=== PATIENT | male | born 1950 | race African-American/Black ===

== ENCOUNTER 2022-05-29 11:42 | Observation (INO) ==
[2022-05-29] MEDS ORDERED: SODIUM CHLORIDE 0.9% 1,000 ML IV STA (12:18)
[2022-05-29] MEDS ORDERED: DEXTROSE 10% 250 ML BAG IV PRN (13:24)
[2022-05-29] MEDS ORDERED: GLUCAGON 1 MG VIAL IM PRN (13:24)
[2022-05-29] MEDS ORDERED: ONDANSETRON 4 MG/2 ML VIAL IV PRN (13:26)
[2022-05-29] MEDS ORDERED: ACETAMINOPHEN 325 MG TABLET PO PRN (13:26)
[2022-05-29] MEDS ORDERED: POTASSIUM CHLORIDE 20 MEQ TABLET PO STA (13:26)
[2022-05-29] MEDS: SODIUM CHLORIDE 0.9% 1,000 ML IV SCH (14:16)
[2022-05-29] MEDS: PANTOPRAZOLE 40 MG TABLET PO SCH (14:16)
[2022-05-29] MEDS ORDERED: PNEUMOCOCCAL VACCINE (13 VALENT) 0.5 ML SYRINGE IM ONE (16:20)
[2022-05-29 16:46] LABS: Albumin 2.6 G/DL (3.4-5.0); Bilirubin,Total 0.4 MG/DL (0.20-1.00); Calcium 9.7 MG/DL (8.5-10.1); Osmolality,Calculated 287.3 MOS/KG (273-304); Potassium 3.3 MMOL/L (3.5-5.1); Total Protein 7.4 G/DL (6.4-8.2)
[2022-05-29] MEDS: ENOXAPARIN 40 MG/0.4 ML SYRINGE SUBCUT SCH (16:47)
[2022-05-30] MEDS: SODIUM CHLORIDE 0.9% 1,000 ML IV SCH (00:58)
[2022-05-30 05:01] LABS: Basophils # 0.1 10*3/uL (0.0-0.2); Basophils % 0.7 % (0.0-0.8); Eosinophils % 0.1 % (0.00-10.9); Hematocrit 26.6 VOL% (42.0-52.0); Hemoglobin 8.8 GM/DL (14.0-18.0); Immature Granulocytes % 5.3 %; Immature Granulocytes Absolute 0.46 #; Lymphocytes # 2.1 10*3/uL (1.4-4.0); Lymphocytes % 23.5 % (21.2-54.2); Mean Corpuscular HGB Conc 33.1 GM/DL (32-36); Mean Corpuscular Volume 91.1 FL (87-102); Mean Platelet Volume 10.8 FL (9.6-12.0); Monocytes # 0.9 10*3/uL (0.11-0.8); Monocytes % 10.7 % (1.7-12.7); Neutrophils % 59.7 % (38.7-73.9); Platelet Count 279 T/CUMM (130-400); Red Blood Count 2.92 MC/CUMM (3.8-5.5); Red Cell Distribution Width 14.6 % (9.3-17.3); White Blood Count 8.8 T/CUMM (4-12)
[2022-05-30 05:22] LABS: Band Neutrophils 1 % (0-10); Lymphocytes 25 % (20-55); Metamyelocytes 1 %; Myelocytes 1 %; Total Cells Counted 100
[2022-05-30 05:23] LABS: Microcytosis Slight; Ovalocytes Slight
[2022-05-30 05:25] LABS: Albumin 2.2 G/DL (3.4-5.0); Bilirubin,Total 0.4 MG/DL (0.20-1.00); Calcium 8.7 MG/DL (8.5-10.1); Osmolality,Calculated 284.3 MOS/KG (273-304); Potassium 2.6 MMOL/L (3.5-5.1); Total Protein 6.3 G/DL (6.4-8.2)
[2022-05-30] MEDS ORDERED: POTASSIUM CHLORIDE 20 MEQ TABLET PO ONE ×3 (07:37→12:00)
[2022-05-30] MEDS ORDERED: MAGNESIUM SULF RIDER 4 GM/100 ML PREMIX IV ONE (07:41)
[2022-05-30] MEDS: SIMVASTATIN 10 MG TABLET PO SCH (09:10)
[2022-05-30] MEDS: PANTOPRAZOLE 40 MG TABLET PO SCH (09:10)
[2022-05-30] MEDS ORDERED: LOPERAMIDE 2 MG CAPSULE PO PRN (10:41)
[2022-05-30] MEDS: POTASSIUM CHLORIDE INJ 30 MEQ in SODIUM CHLORIDE 0.9% 1,000 ML IV SCH ×2 (11:34→20:36)
[2022-05-30] MEDS: ENOXAPARIN 40 MG/0.4 ML SYRINGE SUBCUT SCH (15:40)
[2022-05-31 05:05] LABS: Basophils # 0.1 10*3/uL (0.0-0.2); Basophils % 0.6 % (0.0-0.8); Eosinophils % 0.1 % (0.00-10.9); Hematocrit 27.9 VOL% (42.0-52.0); Hemoglobin 9.3 GM/DL (14.0-18.0); Immature Granulocytes % 4.2 %; Immature Granulocytes Absolute 0.34 #; Lymphocytes # 1.7 10*3/uL (1.4-4.0); Lymphocytes % 20.5 % (21.2-54.2); Mean Corpuscular HGB Conc 33.3 GM/DL (32-36); Mean Corpuscular Volume 91.8 FL (87-102); Mean Platelet Volume 10.4 FL (9.6-12.0); Monocytes # 0.8 10*3/uL (0.11-0.8); Monocytes % 9.3 % (1.7-12.7); Neutrophils % 65.3 % (38.7-73.9); Platelet Count 315 T/CUMM (130-400); Red Blood Count 3.04 MC/CUMM (3.8-5.5); Red Cell Distribution Width 14.8 % (9.3-17.3); White Blood Count 8.1 T/CUMM (4-12)
[2022-05-31] MEDS: POTASSIUM CHLORIDE INJ 30 MEQ in SODIUM CHLORIDE 0.9% 1,000 ML IV SCH (05:10)
[2022-05-31 05:38] LABS: Calcium 8.9 MG/DL (8.5-10.1); Potassium 3.7 MMOL/L (3.5-5.1)
[2022-05-31 08:18] VITALS: BP 140/82
[2022-05-31] MEDS: SIMVASTATIN 10 MG TABLET PO SCH (09:31)
[2022-05-31] MEDS: PANTOPRAZOLE 40 MG TABLET PO SCH (09:31)
== END 2022-05-31 11:02 | disposition home or self-care (01) ==
LOC: N.EDINP 11:42 → N.ED 11:42 → SUATTDRO 13:24 → N.EDINP 15:48 → N.TELEN 15:53
PROVIDERS: ADMIT Internal Medicine Geriatric Medicine; ATTEND Family Medicine

== ENCOUNTER 2022-06-21 08:36 | Inpatient (IN) ==
[2022-06-21] MEDS ORDERED: SODIUM CHLORIDE 0.9% 1,000 ML IV STA ×2 (08:53→10:17)
[2022-06-21 09:53] LABS: Albumin 2.1 G/DL (3.4-5.0); Bilirubin,Total 0.7 MG/DL (0.20-1.00); Calcium 9.8 MG/DL (8.5-10.1); Osmolality,Calculated 281.2 MOS/KG (273-304); Potassium 3.2 MMOL/L (3.5-5.1); Total Protein 8.8 G/DL (6.4-8.2)
[2022-06-21 10:02] LABS: Basophils % 0.1 % (0.0-0.8); Eosinophils % 0.2 % (0.00-10.9); Hematocrit 24.3 VOL% (42.0-52.0); Immature Granulocytes % 1.1 %; Immature Granulocytes Absolute 0.11 #; Lymphocytes # 0.8 10*3/uL (1.4-4.0); Lymphocytes % 8.3 % (21.2-54.2); Mean Corpuscular HGB Conc 32.9 GM/DL (32-36); Mean Platelet Volume 10.7 FL (9.6-12.0); Monocytes # 0.7 10*3/uL (0.11-0.8); Monocytes % 7.1 % (1.7-12.7); Neutrophils % 83.2 % (38.7-73.9); Platelet Count 231 T/CUMM (130-400); Red Blood Count 2.73 MC/CUMM (3.8-5.5); Red Cell Distribution Width 15.4 % (9.3-17.3); White Blood Count 10.1 T/CUMM (4-12)
[2022-06-21] MEDS ORDERED: POTASSIUM CHLORIDE 20 MEQ TABLET PO STA (10:12)
[2022-06-21] MEDS ORDERED: SODIUM CHLORIDE 0.9% 2,200 ML IV ONE (10:21)
[2022-06-21 10:27] LABS: Bilirubin,Total 0.7 MG/DL (0.20-1.00); Osmolality,Calculated 287.8 MOS/KG (273-304); Potassium 3.2 MMOL/L (3.5-5.1); Total Protein 7.8 G/DL (6.4-8.2)
[2022-06-21 11:46] LABS: Mucus,Urine Occasional /LPF (Occasional); RBC,Urine 1 /HPF (0-4); Squamous Epithelial Cell,Urine Occasional /HPF (0-10); Urine Appearance Clear (Clear); Urine Color Yellow (Yellow); Urine pH 5.5 (4.5-8.0)
[2022-06-21 11:47] LABS: Bilirubin,Urine Negative (Negative); Blood, Urine Negative (Negative); Glucose,Urine (UA) Negative (Negative); Ketones,Urine Negative (Negative); Nitrite,Urine Negative (Negative); Protein,Urine Trace mg/dL (Negative); Urine Specific Gravity 1.015 (1.001-1.035)
[2022-06-21] MEDS: PIPERACILLIN/TAZOBACTAM 3,375 MG in SODIUM CHLORIDE 0.9% 100 ML IV SCH ×2 (11:48→17:46)
[2022-06-21] MEDS ORDERED: SODIUM CHLORIDE 0.9% 50 ML IV STA (11:50)
[2022-06-21] MEDS ORDERED: SODIUM CHLORIDE 0.9% 200 ML IV STA (11:51)
[2022-06-21] MEDS ORDERED: POTASSIUM CHLORIDE 20 MEQ TABLET PO ONE (12:42)
[2022-06-21] MEDS ORDERED: ONDANSETRON 4 MG/2 ML VIAL IV PRN (12:44)
[2022-06-21] MEDS ORDERED: DEXTROSE 10% 250 ML BAG IV PRN (12:44)
[2022-06-21] MEDS ORDERED: ACETAMINOPHEN 325 MG TABLET PO PRN (12:44)
[2022-06-21] MEDS ORDERED: GLUCAGON 1 MG VIAL IM PRN (12:44)
[2022-06-21] MEDS: SODIUM CHLORIDE 0.9% 1,000 ML IV SCH ×2 (13:10→23:03)
[2022-06-21 13:21] LABS: Ferritin 502.4 ng/mL (26-388); Folate 19.34 NG/ML (5.38-24.0)
[2022-06-21] MEDS ORDERED: MAGNESIUM SULF RIDER 2 GM/50 ML PREMIX IV ONE (15:11)
[2022-06-22] MEDS: PIPERACILLIN/TAZOBACTAM 3,375 MG in SODIUM CHLORIDE 0.9% 100 ML IV SCH ×3 (03:01→17:39)
[2022-06-22 04:35] LABS: Basophils % 0.3 % (0.0-0.8); Eosinophils # 0.1 10*3/uL (0.0-0.87); Eosinophils % 1.3 % (0.00-10.9); Hematocrit 23.4 VOL% (42.0-52.0); Hemoglobin 7.8 GM/DL (14.0-18.0); Immature Granulocytes % 1.5 %; Immature Granulocytes Absolute 0.16 #; Lymphocytes # 1.5 10*3/uL (1.4-4.0); Mean Corpuscular HGB Conc 33.3 GM/DL (32-36); Mean Platelet Volume 10.9 FL (9.6-12.0); Monocytes # 1.4 10*3/uL (0.11-0.8); Monocytes % 12.8 % (1.7-12.7); NRBC # 0.02 10*3/uL; Neutrophils % 70.1 % (38.7-73.9); Platelet Count 165 T/CUMM (130-400); Red Blood Count 2.63 MC/CUMM (3.8-5.5); Red Cell Distribution Width 15.6 % (9.3-17.3); White Blood Count 10.9 T/CUMM (4-12)
[2022-06-22 06:37] LABS: Calcium 8.9 MG/DL (8.5-10.1); Osmolality,Calculated 283.5 MOS/KG (273-304); Potassium 3.7 MMOL/L (3.5-5.1)
[2022-06-22] MEDS ORDERED: LACTATED RINGERS 1,000 ML IV SCH (07:30)
[2022-06-22] MEDS ORDERED: SODIUM CHLORIDE 0.9% 1,000 ML IV PRN (08:37)
[2022-06-22] MEDS: PANTOPRAZOLE 40 MG TABLET PO SCH (10:17)
[2022-06-22] MEDS: FERRIC GLUCONATE COMPLEX 125 MG in SODIUM CHLORIDE 0.9% 100 ML IV SCH (10:17)
[2022-06-22] MEDS: SODIUM CHLORIDE 0.9% 1,000 ML IV SCH (17:49)
[2022-06-23] MEDS: PIPERACILLIN/TAZOBACTAM 3,375 MG in SODIUM CHLORIDE 0.9% 100 ML IV SCH ×3 (02:10→18:43)
[2022-06-23 04:51] LABS: Basophils % 0.2 % (0.0-0.8); Eosinophils # 0.2 10*3/uL (0.0-0.87); Hematocrit 30.1 VOL% (42.0-52.0); Hemoglobin 10.5 GM/DL (14.0-18.0); Immature Granulocytes % 1.2 %; Lymphocytes # 1.1 10*3/uL (1.4-4.0); Lymphocytes % 14.2 % (21.2-54.2); Mean Corpuscular HGB Conc 34.9 GM/DL (32-36); Mean Corpuscular Volume 88.3 FL (87-102); Mean Platelet Volume 10.9 FL (9.6-12.0); Monocytes # 0.4 10*3/uL (0.11-0.8); Monocytes % 5.4 % (1.7-12.7); Platelet Count 246 T/CUMM (130-400); Red Blood Count 3.41 MC/CUMM (3.8-5.5); Red Cell Distribution Width 15.9 % (9.3-17.3)
[2022-06-23 05:15] LABS: Osmolality,Calculated 274.8 MOS/KG (273-304); Potassium 3.6 MMOL/L (3.5-5.1)
[2022-06-23] MEDS ORDERED: MAGNESIUM SULF RIDER 2 GM/50 ML PREMIX IV ONE (08:02)
[2022-06-23] MEDS ORDERED: LOPERAMIDE 2 MG CAPSULE PO PRN (08:05)
[2022-06-23] MEDS: FERRIC GLUCONATE COMPLEX 125 MG in SODIUM CHLORIDE 0.9% 100 ML IV SCH (10:05)
[2022-06-23] MEDS: PANTOPRAZOLE 40 MG TABLET PO SCH (10:05)
[2022-06-23] MEDS: allopurinoL 100 MG TABLET PO SCH (10:08)
[2022-06-23] MEDS ORDERED: SIMVASTATIN 10 MG TABLET PO SCH (21:00)
[2022-06-24] MEDS: PIPERACILLIN/TAZOBACTAM 3,375 MG in SODIUM CHLORIDE 0.9% 100 ML IV SCH ×2 (02:19→10:20)
[2022-06-24 05:35] LABS: Basophils % 0.3 % (0.0-0.8); Eosinophils # 0.1 10*3/uL (0.0-0.87); Hematocrit 27.2 VOL% (42.0-52.0); Immature Granulocytes % 0.9 %; Immature Granulocytes Absolute 0.06 #; Lymphocytes # 1.2 10*3/uL (1.4-4.0); Lymphocytes % 18.5 % (21.2-54.2); Mean Corpuscular HGB Conc 33.1 GM/DL (32-36); Mean Corpuscular Volume 87.2 FL (87-102); Mean Platelet Volume 10.5 FL (9.6-12.0); Monocytes # 0.4 10*3/uL (0.11-0.8); Monocytes % 6.6 % (1.7-12.7); Neutrophils % 71.7 % (38.7-73.9); Platelet Count 223 T/CUMM (130-400); Red Blood Count 3.12 MC/CUMM (3.8-5.5); Red Cell Distribution Width 15.6 % (9.3-17.3); White Blood Count 6.5 T/CUMM (4-12)
[2022-06-24 05:52] LABS: Calcium 8.8 MG/DL (8.5-10.1); Potassium 3.3 MMOL/L (3.5-5.1)
[2022-06-24] MEDS ORDERED: POTASSIUM CHLORIDE 20 MEQ TABLET PO ONE (07:42)
[2022-06-24 08:02] LABS: Platelet Estimate Normal
[2022-06-24] MEDS ORDERED: MAGNESIUM SULF RIDER 2 GM/50 ML PREMIX IV ONE (08:21)
[2022-06-24] MEDS: allopurinoL 100 MG TABLET PO SCH (08:38)
[2022-06-24] MEDS: PANTOPRAZOLE 40 MG TABLET PO SCH (08:38)
[2022-06-24] MEDS ORDERED: LISINOPRIL/HCTZ 20-12.5 MG TABLET PO SCH (09:00)
[2022-06-24] MEDS: FERRIC GLUCONATE COMPLEX 125 MG in SODIUM CHLORIDE 0.9% 100 ML IV SCH (09:09)
[2022-06-24 16:19] VITALS: BP 123/70
== END 2022-06-24 16:30 | disposition home or self-care (01) | DRG 683 ==
LOC: EDBD → EDUNIT# → N.EDINP 08:36 → N.ED 08:36 → N.EDINP 15:24 → N.TELES 15:55 → SUATTDRO 06-22 08:33
PROVIDERS: ADMIT Internal Medicine; ATTEND Emergency Medicine

== ENCOUNTER 2022-10-18 05:13 | Inpatient (IN) ==
[2022-10-18] MEDS ORDERED: VANCOMYCIN INJ 1,000 MG in SODIUM CHLORIDE 0.9% 250 ML IV ONE (06:00)
[2022-10-18] MEDS: LACTATED RINGERS 1,000 ML IV SCH ×2 (06:13→08:58)
[2022-10-18 06:26] LABS: INR 0.9; PT Patient Result 10.2 SECS (10.1-12.1); Partial Thromboplastin Time 26.2 SECS (23.7-32.9)
[2022-10-18] MEDS ORDERED: MIDAZOLAM 2 MG/2 ML VIAL ONE (06:37)
[2022-10-18] MEDS ORDERED: fentaNYL 100 MCG/2 ML VIAL ONE ×2 (06:37→08:01)
[2022-10-18] MEDS ORDERED: buprenorphine HCL 0.3 MG/ML VIAL ONE (06:38)
[2022-10-18] MEDS ORDERED: ACETAMINOPHEN 500 MG TABLET PO ONE (06:42)
[2022-10-18] MEDS ORDERED: GABAPENTIN 400 MG CAPSULE PO ONE (06:42)
[2022-10-18] MEDS ORDERED: DEXAMETHASONE 4 MG/1 ML VIAL ONE ×3 (06:44→08:28)
[2022-10-18] MEDS ORDERED: BUPIVACAINE SPINAL 0.75% 2 ML AMP SPINAL ONE (06:44)
[2022-10-18] MEDS ORDERED: LIDOCAINE 1% 5 ML VIAL ONE (06:45)
[2022-10-18] MEDS ORDERED: ROPIVACAINE 0.5% 30 ML VIAL ONE (06:45)
[2022-10-18] MEDS ORDERED: GABAPENTIN 400 MG CAPSULE ONE (06:48)
[2022-10-18] MEDS ORDERED: ACETAMINOPHEN 500 MG TABLET ONE (06:48)
[2022-10-18] MEDS ORDERED: ONDANSETRON 4 MG/2 ML VIAL IV PRN ×2 (07:22→09:00)
[2022-10-18] MEDS ORDERED: PROMETHAZINE 25 MG/1 ML VIAL IM PRN (07:22)
[2022-10-18] MEDS ORDERED: BISACODYL 10 MG SUPP RECTAL PRN (07:22)
[2022-10-18] MEDS ORDERED: MAGNESIUM HYDROXIDE SUSP 30 ML UDCUP PO PRN (07:22)
[2022-10-18] MEDS ORDERED: diphenhydrAMINE CAP 25 MG CAPSULE PO PRN (07:22)
[2022-10-18] MEDS ORDERED: LACTULOSE 20 GM/30 ML UDCUP PO PRN (07:22)
[2022-10-18] MEDS ORDERED: TEMAZEPAM 7.5 MG CAPSULE PO PRN (07:22)
[2022-10-18] MEDS ORDERED: TRANEXAMIC ACID 1,000 MG/10 ML VIAL ONE (07:37)
[2022-10-18] MEDS ORDERED: ROCURONIUM 50 MG/5 ML VIAL IV ONE (07:37)
[2022-10-18] MEDS ORDERED: SEVOFLURANE 1 UNIT/15 MINUTE INH ONE ×6 (07:37→08:28)
[2022-10-18] MEDS ORDERED: LIDOCAINE 2% 5 ML VIAL ONE (07:37)
[2022-10-18] MEDS ORDERED: propofoL 200 MG/20 ML VIAL IV ONE ×3 (07:37→08:19)
[2022-10-18] MEDS ORDERED: HYDROmorphone 1 MG/1 ML SYRINGE ONE (07:38)
[2022-10-18] MEDS ORDERED: MORPHINE 2 MG/1 ML SYRINGE IV PRN (07:40)
[2022-10-18] MEDS ORDERED: LABETALOL 20 MG/4 ML SYRINGE IV ONE (07:49)
[2022-10-18] MEDS ORDERED: hydrALAZINE 20 MG/1 ML VIAL ONE (08:01)
[2022-10-18] MEDS ORDERED: ONDANSETRON 4 MG/2 ML VIAL ONE (08:10)
[2022-10-18] MEDS ORDERED: PHENYLEPHRINE 1 MG/10 ML SYRINGE IV ONE (08:18)
[2022-10-18] MEDS ORDERED: NEOSTIGMINE 10 MG/10 ML VIAL ONE (08:27)
[2022-10-18] MEDS ORDERED: GLYCOPYRROLATE 0.4 MG/2 ML VIAL ONE (08:34)
[2022-10-18] MEDS ORDERED: NON-FORMULARY MEDICATION (Enzalutamide [Xtandi] 40 mg Capsule) PO SCH (09:00)
[2022-10-18] MEDS ORDERED: MEPERIDINE 25 MG/1 ML VIAL ONE (09:00)
[2022-10-18] MEDS ORDERED: ABIRATERONE 250 MG PO SCH (09:00)
[2022-10-18] MEDS: MEPERIDINE 25 MG/1 ML VIAL IV PRN ×2 (09:06→09:30)
[2022-10-18] MEDS: MULTIVITAMIN (CENTRUM) TABLET PO SCH (12:00)
[2022-10-18] MEDS: ceFAZolin 2,000 MG/50 ML DUPLEX IV SCH ×2 (15:00→21:01)
[2022-10-18] MEDS: FERROUS SULFATE 325 MG TABLET PO SCH (17:45)
[2022-10-18] MEDS: FONDAPARINUX 2.5 MG/0.5 ML SYRINGE SUBCUT SCH (17:45)
[2022-10-18] MEDS: SIMVASTATIN 10 MG TABLET PO SCH (21:01)
[2022-10-18] MEDS: DOCUSATE SODIUM 100 MG CAPSULE PO SCH (21:01)
[2022-10-19] MEDS: MORPHINE 2 MG/1 ML SYRINGE IV PRN ×2 (04:27→10:09)
[2022-10-19] MEDS: ABIRATERONE 250 MG PO SCH (05:10)
[2022-10-19 05:21] LABS: Basophils % 0.2 % (0.0-0.8); Eosinophils % 0.2 % (0.00-10.9); Hematocrit 29.8 VOL% (42.0-52.0); Hemoglobin 9.7 GM/DL (14.0-18.0); Immature Granulocytes % 0.4 %; Immature Granulocytes Absolute 0.02 #; Lymphocytes # 1.5 10*3/uL (1.4-4.0); Lymphocytes % 28.5 % (21.2-54.2); Mean Corpuscular HGB Conc 32.6 GM/DL (32-36); Mean Corpuscular Volume 100.7 FL (87-102); Mean Platelet Volume 9.8 FL (9.6-12.0); Monocytes # 0.6 10*3/uL (0.11-0.8); Monocytes % 12.4 % (1.7-12.7); Neutrophils % 58.3 % (38.7-73.9); Platelet Count 208 T/CUMM (130-400); Red Blood Count 2.96 MC/CUMM (3.8-5.5); Red Cell Distribution Width 14.3 % (9.3-17.3); White Blood Count 5.1 T/CUMM (4-12)
[2022-10-19 05:48] LABS: Calcium 7.8 MG/DL (8.5-10.1); Osmolality,Calculated 284.1 MOS/KG (273-304); Potassium 4.5 MMOL/L (3.5-5.1)
[2022-10-19] MEDS ORDERED: ACETAMINOPHEN 325 MG TABLET PO PRN (07:23)
[2022-10-19] MEDS: CALCIUM (CARBONATE) 500 MG TABLET PO SCH (10:07)
[2022-10-19] MEDS: MELOXICAM 7.5 MG TABLET PO SCH (10:07)
[2022-10-19] MEDS: predniSONE 5 MG TABLET PO SCH (10:08)
[2022-10-19] MEDS: FERROUS SULFATE 325 MG TABLET PO SCH ×2 (10:08→17:23)
[2022-10-19] MEDS: lisinopriL 20 MG TABLET PO SCH (10:08)
[2022-10-19] MEDS: DOCUSATE SODIUM 100 MG CAPSULE PO SCH ×2 (10:08→21:35)
[2022-10-19] MEDS: PANTOPRAZOLE 40 MG TABLET PO SCH (10:08)
[2022-10-19] MEDS: MULTIVITAMIN (CENTRUM) TABLET PO SCH (10:08)
[2022-10-19] MEDS ORDERED: oxyCODONE/ACETAMINOPHEN 5-325 MG TABLET PO PRN (11:03)
[2022-10-19] MEDS: FONDAPARINUX 2.5 MG/0.5 ML SYRINGE SUBCUT SCH (17:23)
[2022-10-19] MEDS: SIMVASTATIN 10 MG TABLET PO SCH (21:35)
[2022-10-19] MEDS: oxyCODONE/ACETAMINOPHEN 5-325 MG TABLET PO PRN (21:45)
[2022-10-20 05:23] LABS: Basophils % 0.2 % (0.0-0.8); Eosinophils % 0.7 % (0.00-10.9); Hematocrit 31.4 VOL% (42.0-52.0); Immature Granulocytes % 0.2 %; Immature Granulocytes Absolute 0.01 #; Lymphocytes # 1.8 10*3/uL (1.4-4.0); Lymphocytes % 29.5 % (21.2-54.2); Mean Corpuscular HGB Conc 31.8 GM/DL (32-36); Mean Platelet Volume 9.5 FL (9.6-12.0); Monocytes # 0.7 10*3/uL (0.11-0.8); Monocytes % 12.1 % (1.7-12.7); Neutrophils % 57.3 % (38.7-73.9); Platelet Count 196 T/CUMM (130-400); Red Blood Count 3.11 MC/CUMM (3.8-5.5); Red Cell Distribution Width 14.3 % (9.3-17.3); White Blood Count 5.9 T/CUMM (4-12)
[2022-10-20] MEDS: ABIRATERONE 250 MG PO SCH (06:09)
[2022-10-20] MEDS: lisinopriL 20 MG TABLET PO SCH (09:45)
[2022-10-20] MEDS: MULTIVITAMIN (CENTRUM) TABLET PO SCH (09:45)
[2022-10-20] MEDS: DOCUSATE SODIUM 100 MG CAPSULE PO SCH (09:45)
[2022-10-20] MEDS: FERROUS SULFATE 325 MG TABLET PO SCH (09:45)
[2022-10-20] MEDS: PANTOPRAZOLE 40 MG TABLET PO SCH (09:45)
[2022-10-20] MEDS: MELOXICAM 7.5 MG TABLET PO SCH (09:45)
[2022-10-20] MEDS: CALCIUM (CARBONATE) 500 MG TABLET PO SCH (10:03)
[2022-10-20] MEDS: predniSONE 5 MG TABLET PO SCH (10:04)
[2022-10-20] MEDS: oxyCODONE/ACETAMINOPHEN 5-325 MG TABLET PO PRN (10:04)
[2022-10-20 11:09] VITALS: BP 126/73
== END 2022-10-20 11:35 | DRG 470 ==
LOC: N.SDSINP 05:13 → N.3E 12:00
PROVIDERS: ADMIT Orthopaedic Surgery; ATTEND Orthopaedic Surgery